=== PATIENT | male | born 1960 ===

== ENCOUNTER 2020-02-09 11:31 | Outpatient (CLI) | payer OTHER | END 2020-02-09 11:39 | disposition home or self-care (01) | LOC: SONOGRAMA 11:31 | PROVIDERS: ATTEND Pathology Anatomic Pathology & Clinical Pathology | DX: D34 Benign neoplasm of thyroid gland (principal); E04.1 Nontoxic single thyroid nodule; E04.8 Other specified nontoxic goiter ==